=== PATIENT | female | born 1970 ===

== ENCOUNTER 2024-01-22 20:31 | Emergency (ER) | payer OTHER, SELFPAY ==
--- NOTE | ~2024-01-22 | CT_ITS ---
EXAMINATION: CT CERVICAL SPINE WITHOUT CONTRAST CLINICAL INFORMATION: Neck pain. COMPARISON: None available. TECHNIQUE: Multidetector helical imaging of the cervical spine was obtained without intravenous contrast. Multiple axial reformats and coronal/sagittal reconstructions were created the technologist workstation for review. This CT examination was performed using dose optimization techniques as appropriate, variously including the following: *Automated exposure control. *Adjustment of mA and/or kV according to patient size (this includes techniques or standardized protocols for targeted exams where dose is matched to indication/reason for exam; i.e. extremities or head). *Use of iterative reconstruction technique. DLP: 441 mGy-cm FINDINGS: The atlantooccipital and atlantoaxial articulations remain well aligned. Straightening of the normal cervical lordosis. Otherwise, there is anatomic alignment of the vertebral bodies and posterior elements. No evidence of acute fracture or subluxation. The vertebral body heights are maintained. Moderate degenerative disc disease from C4-C6. Facet and uncovertebral joint arthropathy leads to osseous encroachment on the neural foramina from C4-C6. There is no prevertebral soft tissue swelling. The thyroid gland and remaining cervical soft tissues are within normal limits. The lung apices demonstrate no abnormalities. SPINAL LEVELS: C2-C3: Minimal disc-osteophyte complex. There is mild right and no left uncovertebral joint arthropathy. There is mild bilateral facet joint arthropathy. There is no neural foraminal stenosis. There is no demonstrated spinal canal stenosis. C3-C4: Minimal disc-osteophyte complex. There is mild right and no left uncovertebral joint arthropathy. There is mild left worse than right facet joint arthropathy. There is no neural foraminal stenosis. There is no demonstrated spinal canal stenosis. C4-C5: Mild disc-osteophyte complex. There is moderate right worse than left uncovertebral joint arthropathy. There is moderate left and mild right facet joint arthropathy. There is moderate right and mild left neural foraminal stenosis. There is no demonstrated spinal canal stenosis. C5-C6: Moderate disc-osteophyte complex. There is moderate left and mild right uncovertebral joint arthropathy. There is mild bilateral facet joint arthropathy. There is mild left and no right neural foraminal stenosis. There is no demonstrated spinal canal stenosis. C6-C7: Normal annular contour. There is no uncovertebral joint arthropathy. There is mild bilateral facet joint arthropathy. There is no neural foraminal stenosis. There is no spinal canal stenosis. C7-T1: Normal annular contour. There is no uncovertebral joint arthropathy. There is no facet joint arthropathy. There is no neural foraminal stenosis. There is no spinal canal stenosis. CT/CT cervical spine wo IV con IMPRESSION: 1. No evidence of acute fracture or traumatic subluxation of the cervical spine. 2. Moderate multilevel degenerative spondyloarthropathy of the cervical spine as described in detail above. Most notably on this limited exam without intrathecal contrast, there appears to be moderate neural foraminal stenoses at C4-C5 and C5-C6. No demonstrated overt spinal canal stenosis. Electronically signed by: Osmin Vann DO 01/22/2024 10:48 PM SHANNON
[2024-01-22 20:46] VITALS: BP 118/59; PULSE 79; RESP 20; TEMP 36.6; O2SAT 97; BMI 28.2
--- NOTE | 2024-01-22 20:47 | ED.GENADULT ---
HPI - General Adult General Chief complaint: Neck Pain/Injury Stated complaint: body pain/primarily neck region Time Seen by Provider: 01/23/24 00:08 Source: patient Mode of arrival: ambulatory Limitations: no limitations History of Present Illness HPI narrative: Patient is a 53-year-old female who presents emergency department for evaluation. She has been experiencing lower neck pain that radiates to the bilateral trapezius region. Denies any precipitating injury or history of pain in the past. This started about 2-3 weeks ago. She decided to see a chiropractor she reports that she had about 3 sessions and was feeling better. But after the last 2 sessions she has not noticed an increase in pain, had most recent manipulation 1 week ago. She denies associated dizziness lightheadedness, headache, vision changes, sore throat, difficulty swallowing, facial drooping, weakness, difficulty speaking. Has not taken any OTC analgesics or applied any topical creams, topical heat, or cold therapy. Has not sought evaluation with primary care doctor for this. Denies any associated fevers, chills, night sweats, recent unintentional weight loss, numbness or tingling of the extremities, bladder bowel dysfunction. Related Data Previous Rx's ?Medication ?Instructions ?Recorded cyclobenzaprine 5 mg tablet 5 mg PO TID PRN muscle spasm #14 01/23/24 tabs prednisone 20 mg tablet 40 mg (2 x 20 mg) PO DAILY #10 tabs 01/23/24 Allergies Allergy/AdvReac Type Severity Reaction Status Date / Time No Known Allergies Allergy Verified 01/22/24 20:47 Review of Systems Review of Systems: Yes all other systems are reviewed and are negative [facility] Past Medical History Attestation statement: The following information was validated with the patient. Source: old records reviewed Social History Social History Advance Directives: No Advance Directives Information Provided: No Physical Exam ED Vital Signs: Vital Signs - 24 hr 01/22/24 20:46 Temperature 97.8 F Pulse Rate 79 Respiratory Rate 20 Blood Pressure 118/59 L Pulse Oximetry 97 Oxygen Delivery Method Room Air BMI result Body Mass Index 28.2 Appearance: Alert.?Oriented to person, place and time. No acute distress.?Normal affect. Eyes: Pupils equal, round and reactive to light.? ENT: Pharynx normal.?? Neck: Normal inspection.? Neck supple.? Full range of motion with slow movement, no nuchal rigidity.. No midline cervical spine tenderness, step-offs, deformities. Palpable tenderness to the bilateral trapezius region and lower cervical paraspinal muscles. ? CVS: Heart sounds normal. Normal heart rate and rhythm.? Pulses normal.?? Respiratory: No respiratory distress.? Lung sounds clear to auscultation bilaterally?? Abdomen: Soft and non-tender. Normoactive bowel sounds. Skin: Skin warm and dry.? Normal skin color.? Extremities: No lower extremity edema.? Neuro: Moves all extremities spontaneously. Sensation intact bilaterally. CN II-XII intact. No focal neuro deficits. Ambulates with normal steady gait. Course Course Course Narrative: This is an RME: Additional HPI, ROS, PE not included below will be deferred to primary provider. RME assessment and note performed by: Anabela Luciano PA-C This is a 64-[id number]-tjk-female, with a hx of migraines, who presents to the ER with complaints of neck pain x 2 weeks. Reporting generalized weakness as well. Patient reports that she went to a chiropractor last week and has had pain in since. Plan: Labs, ekg, ua Medical Decision Making Medical Decision Making [facility] Narrative: Patient is a 53-year-old female with past medical history of migraines presents emergency department for evaluation of neck pain with progressive worsening as per HPI. She does admit to some increasing pain after recent manipulation from the chiropractor, clinically appears less consistent with cervical artery dissection aside from. Full range of motion to pain has been tolerable without use of analgesics at home. CT of the cervical spine was obtained prior to my assumption of care without acute fracture subluxation, there is however multi level spondyloarthropathy with moderate neural foraminal stenoses C4-C5 and C5-C6 without overt spinal canal stenosis. On examination she has no neurological deficits. Has full range of motion to the bilateral upper extremities. Has notable tenderness of the bilateral trapezius muscles concern for paraspinal muscles. Plan of care for discharge home with anti-inflammatory muscle relaxant, outpatient follow-up with PCP and/or specialist, discussed strict return precautions. All questions answered. Stable for discharge Differential Diagnosis Differential Diagnoses: The differential diagnosis associated with the presentation includes (See narrative above) Admission/Observation Consideration of admission/observation: Escalation of care including admission/observation considered Lab Data [facility] Lab Attestation statement: I reviewed the patient's lab results. CBC is without leukocytosis, has a mild normocytic anemia that does not meet transfusion criteria, no thrombocytosis 2p tinea. No electrolyte derangement. No EDILIA. LFTs are unremarkable. High sensitive troponin within normal range. Urinalysis with small amount of blood in the urine, reports menstrual bleeding, no evidence of infection. Viral serologies are negative. 01/22/24 21:13 01/22/24 21:13 Labs: Lab Results 01/22/24 01/22/24 Range/Units 21:13 21:36 WBC 7.9 (4.8-10.8) X10*3/uL RBC 3.88 L (4.20-5.50) X10*6/uL Hgb 11.8 L (12.0-16.0) g/dl Hct 35.4 L (37.0-47.0) % MCV 91.2 (80.0-98.0) fL MCH 30.4 (27.0-33.0) pg MCHC 33.3 (31.0-35.0) g/dl RDW 13.1 (11.0-16.0) % Plt Count 305 (160-400) X10*3/uL MPV 10.2 (9.4-12.3) fL Immature Gran % (Auto) 0.4 (0.0-0.4) % Neut % (Auto) 50.8 (45-73) % Lymph % (Auto) 30.1 (20-40) % [place] % (Auto) 10.9 (2-11) % Eos % (Auto) 7.4 H (0-4) % Baso % (Auto) 0.4 (0-2) % Lymph # (Auto) 2.4 (1.2-4.9) X10*3/uL [place] # (Auto) 0.9 (0.1-1.2) X10*3/uL Eos # (Auto) 0.6 H (0.0-0.4) X10*3/uL Baso # (Auto) 0.0 (0.0-0.2) X10*3/uL Abs Immat Gran (auto) 0.03 (0.00-0.03) X10*3/uL Absolute Neuts (auto) 4.0 (2.0-8.3) x10*3/uL Absolute Nucleated RBC 0.000 (0.0-0.012) X10*3/uL Nucleated RBC % (auto) 0.0 (0.0-0.2) /100WBC Sodium 140 (135-145) mmol/L Potassium 3.9 (3.3-5.1) mmol/L Chloride 104 (96-108) mmol/L Carbon Dioxide 25 (22-29) mmol/L Anion Gap 15 (12-20) BUN 18 H (9-16) mg/dL Creatinine 1.00 (0.5-1.4) mg/dL Estim Creat Clear Calc 67.5 Estimated GFR 58 Random Glucose 106 (60-115) mg/dL Calcium 9.8 (8.4-10.2) mg/dL Magnesium 2.1 (1.6-2.6) mg/dL Total Bilirubin 0.2 (0.0-1.0) mg/dL Direct Bilirubin < 0.2 (0.0-0.5) mg/dL AST < 6 (5-31) U/L ALT 15 (0-31) U/L Alkaline Phosphatase 144 H (39-117) U/L Troponin I High Sens < 2.7 (<3.5-17.0) ng/L Total Protein 7.7 (6.5-8.0) g/dL Albumin 4.0 (3.5-5.0) g/dL Urine Color Yellow Urine Appearance Clear Urine pH 5.5 (5.0-9.0) Ur Specific [place] 1.020 (1.005-1.025) Urine Protein Negative (Neg-Trace) mg/dL Urine Glucose (UA) Negative (Negative) mg/dL Urine Ketones Negative (Negative) mg/dL Urine Blood Trace H (Negative) Urine Nitrite Negative (Negative) Ur Leukocyte Esterase Negative (Negative) Urine RBC 3-5 H (0-2) /HPF Urine WBC 0-5 (0-5) /HPF Ur Squamous Epith Cells 3-5 (0-2) /HPF Urine Bacteria None Seen (None Seen) Hyaline Casts 0-2 (0-2) /LPF Influenza Type A (PCR) NEGATIVE (Negative) Influenza Type B (PCR) NEGATIVE (Negative) RSV RNA Qual (PCR) NEGATIVE (Negative) SARS-CoV-2 RNA (RT-PCR) NEGATIVE (Negative) Independent Interpretation I performed an independent interpretation of an: EKG Interpretation: EKG revealing normal sinus rhythm with ventricular rate of 80, normal NEREIDA, QTC 455, no ST elevation aggression, no T-wave inversion. Radiology Impression Discussion of test interpretation with radiology: I have reviewed the radiologist's reading. Radiologist Impression: CT/CT cervical spine wo IV con IMPRESSION: 1. No evidence of acute fracture or traumatic subluxation of the cervical spine. 2. Moderate multilevel degenerative spondyloarthropathy of the cervical spine as described in detail above. Most notably on this limited exam without intrathecal contrast, there appears to be moderate neural foraminal stenoses at C4-C5 and C5-C6. No demonstrated overt spinal canal stenosis. Independent Historian Clinical information obtained from an independent historian. History obtained from or confirmed by: Spouse Tests considered The following testing was considered but not selected: Considered CT angio of the neck, clinical suspicion for cervical every dissection, deferred Prescription Management I considered prescription management with: Pain Medication (See narrative above) Discharge Plan Discharge Clinical Impression: Neuropathic spondyloarthropathy of cervical spine Patient Disposition: Home, Self-Care Instructions: Osteoarthritis (ED) Additional Instructions: Prescription for an oral steroid, prednisone has been sent to your pharmacy, take this daily with meals to prevent stomach upset, to aid in decreasing inflammation. Additionally a prescription for muscle relaxer cyclobenzaprine/Flexeril has been sent to your pharmacy to help with the muscular tension. This medication may make you drowsy. You should not drive, drink alcohol, or work while taking this medication. Please contact your primary care doctor to arrange for a follow-up visit, as discussed it may consider a course of physical therapy pain and/or additional radiographic imaging such as an MRI and/or referral to specialist. You may return to emergency department any new or worsening symptoms or concerns. Prescriptions: New prednisone 20 mg tablet 40 mg PO DAILY Qty: 10 0RF cyclobenzaprine 5 mg tablet 5 mg PO TID PRN (Reason: muscle spasm) Qty: 14 0RF Referrals: Physician,Unknown J [Primary Care Provider] - Print Language: Georgian
--- NOTE | 2024-01-22 20:49 | ECG_ITS ---
Test Reason : neck pain Blood Pressure : / mmHG Vent. Rate : 080 BPM Atrial Rate : 080 BPM P-R Int : 134 ms QRS Dur : 086 ms QT Int : 386 ms P-R-T Axes : 029 009 019 degrees QTc Int : 445 ms Normal sinus rhythm Normal ECG No previous ECGs available Referred By: Anabela Luciano Electronically Signed By:KYLER AVENDANO MD
[2024-01-22 21:20] LABS: MANUAL DIFF FLAG NO
[2024-01-22 21:25] LABS: Basophils Percent Auto 0.4 % (0-2); Eosinophils Absolute Auto 0.6 X10*3/uL (0.0-0.4); Eosinophils Percent Auto 7.4 % (0-4); Hematocrit 35.4 % (37.0-47.0); Hemoglobin 11.8 g/dl (12.0-16.0); Imm Gran Abs Auto 0.03 X10*3/uL (0.00-0.03); Imm Gran Pct Auto 0.4 % (0.0-0.4); Lymphocytes Absolute Auto 2.4 X10*3/uL (1.2-4.9); Lymphocytes Percent Auto 30.1 % (20-40); Mean Corpuscular HGB Conc 33.3 g/dl (31.0-35.0); Mean Corpuscular Hemoglobin 30.4 pg (27.0-33.0); Mean Corpuscular Volume 91.2 fL (80.0-98.0); Mean Platelet Volume 10.2 fL (9.4-12.3); Monocytes Absolute Auto 0.9 X10*3/uL (0.1-1.2); Monocytes Percent Auto 10.9 % (2-11); Neutrophils Percent Auto 50.8 % (45-73); Platelet Count 305 X10*3/uL (160-400); Red Blood Count 3.88 X10*6/uL (4.20-5.50); Red Cell Distribution Width 13.1 % (11.0-16.0); White Blood Count 7.9 X10*3/uL (4.8-10.8)
[2024-01-22 21:36] LABS: Alanine Aminotransferase 15 U/L (0-31); Alkaline Phosphatase 144 U/L (39-117); Anion Gap 15 (12-20); Aspartate Amino Transferase < 6 U/L (5-31); Bilirubin Direct < 0.2 mg/dL (0.0-0.5); Bilirubin Total 0.2 mg/dL (0.0-1.0); Blood Urea Nitrogen 18 mg/dL (9-16); Calcium 9.8 mg/dL (8.4-10.2); Carbon Dioxide 25 mmol/L (22-29); Chloride 104 mmol/L (96-108); Creatinine Clr Calc Pharmacy 67.5; Estimated Glomerular Filt Rate 58; Glucose Random 106 mg/dL (60-115); Magnesium 2.1 mg/dL (1.6-2.6); Potassium 3.9 mmol/L (3.3-5.1); Sodium 140 mmol/L (135-145); Total Protein 7.7 g/dL (6.5-8.0)
[2024-01-22 21:43] LABS: Troponin-I High Sensitivity < 2.7 ng/L (<3.5-17.0)
[2024-01-22 21:45] LABS: Appearance Urine Clear; Color Urine Yellow; Glucose Urine UA Negative (Negative); Leukocyte Esterase Urine Negative (Negative); Nitrite Urine Negative (Negative); PH 5.5 (5.0-9.0); UMIC TRIGGER UACC YES; Urine Blood Trace (Negative); Urine Ketones Negative (Negative); Urine Protein Negative (Neg-Trace)
[2024-01-22 21:50] LABS: Bacteria Urine None Seen (None Seen); Hyaline Casts Urine 0-2 /LPF (0-2); WBC Urine 0-5 /HPF (0-5)
[2024-01-22 22:03] LABS: Influenza A PCR NEGATIVE (Negative); Influenza B PCR NEGATIVE (Negative); Resp Syncy Virus RNA Qual PCR NEGATIVE (Negative); SARS COV2 PCR INHOUSE NEGATIVE (Negative)
[2024-01-23 00:40] VITALS: BP 128/70; PULSE 68; RESP 16; TEMP 36.7; O2SAT 100
[2024-01-23 01:17] VITALS: BP 128/70; PULSE 68; RESP 16; TEMP 36.7; O2SAT 100
== END 2024-01-23 01:17 | disposition home or self-care (01) ==
PROVIDERS: Physician Assistant Medical; Emergency Provider Emergency Medicine
DX: M54.2 Cervicalgia (principal); M49.82 Spondylopathy in diseases classified elsewhere, cervical region; Z03.818 Encounter for observation for suspected exposure to other biological agents ruled out
CPT/HCPCS: 0241U; 36415; 72125; 80048; 80076; 81001; 83735; 84484; 85025; 93005; 99284

== ENCOUNTER → 2024-01-22 20:49 | Outpatient (BNV) | payer OTHER, SELFPAY | PROVIDERS: Emergency Provider Emergency Medicine; Visit Provider Internal Medicine Cardiovascular Disease | DX: M54.2 Cervicalgia (principal) | CPT/HCPCS: 93010 ==

== ENCOUNTER 2024-07-24 12:47 | Outpatient (AMB) | payer OTHER, SELFPAY ==
--- NOTE | 2024-07-24 12:57 | A.SPINEOV_ITS ---
Vital Signs 07/24/24 13:00 Height 5 ft 6 in Weight 175 lb BMI 28.2 Intake Visit Reasons: neck pain Intake Note: Ms. Alvarez is here today c/o Neck pain. Riprap Worker Required: No Allergies No Known Allergies Allergy (Verified 07/24/24 13:00) Physical Exam Vital Signs: BMI result Body Mass Index 28.2 Assessment & Plan Assessment & Plan (1) Cervical disc disorder: Code(s): M50.90 - Cervical disc disorder, unspecified, unspecified cervical region Category: Medical Plan Dear Esperanza, Thank you for referring Mrs Alvarez to our office today. She is a 53-year-old female presents today for evaluation of what she describes as burning pain along her shoulders. She has limited range of motion with reaching overhead, and pain there all the time. It started sometime around December last year. She saw a chiropractor and that seemed to make it worse. She takes Tylenol, Advil and cyclobenzaprine. She had an MRI done showing some disc degeneration and was referred here today in the office. She has no radicular symptoms or myelopathic complaints. So far she has done no dedicated conservative treatment other than the 1 chiropractic visit. PMH: Otherwise healthy Social hx: Does not smoke, drink use any recreational drugs Medications: Tylenol, Advil, cyclobenzaprine Allergies: None Physical exam: Awake alert oriented no acute distress, gait normal, strength and reflexes normal. No signs of myelopathy Imaging review: Cervical MRI done at [facility] shows some mild disc degeneration at C4-5 and C5-6. No evidence of nerve compression or spinal cord compression seen. Impression: 53-year-old female presents for evaluation of pain across her upper back into her shoulders, who has some mild degeneration of her discs at C4-5 and C5-6. I do not see any evidence of compression of the nerves. Her disc quality is otherwise relatively good outside of these mild changes. I do not see anything that would lend itself to surgery. She is going to follow up with what sounds like the arthritis Center in [place]. She could possibly see someone it a pain management center toofor evaluation. Either is a good place to start but I explained to her that I do not think the symptoms are coming from her neck. Maybe it some kind of polymyalgia, or it could be rotator cuff issue as she does have to lift her son who had a spinal cord injury and provide all of his personal care for him. Thank you for allowing us to care for your patient. The total time spent with this visit with this patient was 45 minutes reviewing history, physical exam, cervical imaging review, and implementation of treatment plan or further diagnostic testing Bethel Mariee MD,PhD [facility] Coding Level of Care Code New Pt Level 4 (37857) Diagnoses Cervical disc disorder M50.90
[2024-07-24 13:00] VITALS: BMI 28.2
--- OUTSIDE RECORDS SUMMARY | 2024-07-24 14:44 | XMS_ITS | Continuity of Care Document ---
Author Organization [facility] Address [address] [place] [address] Dr [address] [place] [id number] Phone Care Team Providers Care Posting Specialist Name Role Phone Lino HOPPER, FRANCINE, Dmitri [...] Providers Copied on Encounter [facility], [address] [place] [address] Dr Alfred [address]Suite Quique Cantor [place], [id number], [place] tel:[phone] CVR - [facility] No Information Lino HOPPER, SERGIO ESCAMILLA. [address] [facility], [facility] [address], [place], [place], [id number], [place]. tel:[phone] Offic/outpt E&m Estab 5 Min Trial- Telemedicine [place] & [place] [facility], [address] [place] [address] Dr Alfred 1000SuQuique hernandez [place], [id number], tel:[phone] CVR - [facility] Localized edemaCramp and spasmRestless legs syndromeVenou s insufficiency (chronic) (peripheral) 5 Lorrie Cheng. [facility] [place] [address], [place], [id number], [place]. tel:[phone] Referring Provider: Edwina Ibarra MD, [address] [facility] [place], [address]. tel:[phone] Offic Cons New/estab Mod-hi 60- [place] & [place] [facility], [address] [place] [address] [facility] [address], [place], [id number], [place] tel:[phone] [facility] hypertension (idiopathic) with other complications of bilateral lower extremityRest less legs syndromeVenou s insufficiency (chronic) (peripheral) 5 Lino HOPPER, FRANCINE, SERGIO Rizvi. [address] [place] [address], [place], [id number], [place]. tel:[phone] [facility], [address] [place] [address] [facility] [address], [place], [id number], [place] tel:[phone] [facility] Chronic venous hypertension (idiopathic) with other complications of bilateral lower extremity 5 Lino HOPPER RVT, RPVI Robert. [address] [place] [address], [place], [id number], [place]. tel:[phone] Referring Provider: Dmitri Huynh MD, RVT, SERGIO, [address] [place] [address], [place], [address] . tel:[phone] Family History Family Member Type Diagnosis Age At Onset No Information Payers Payer name Insurance type Covered green party ID Authoriza tion(s) No Information Social History [...] Body mass index (BMI) 29.0-29.9, adult) ordered Appointment Daisha Alvarez BOOKED Appointment Daisha Alvarez BOOKED History Of Present Illness Encounter Date Complaint History Of Prese nt Illness No Information Functional Status Date Functional Assessmen t No Information Instructions Date Instruction Additional Infor sarah Patient education booklet given Related to Localized edema Pre and post instruc tions reviewed and provided Related to Localized edema Diet education Related [...]
== END 2024-07-24 13:21 | disposition home or self-care (01) ==
LOC: HO.HNS 12:48
PROVIDERS: Visit Provider Physician Assistant
DX: M50.90 Cervical disc disorder, unspecified, unspecified cervical region (principal)
CPT/HCPCS: 99204

== ENCOUNTER → 2024-07-24 12:47 | Outpatient (BNVA) | payer OTHER, SELFPAY | PROVIDERS: Visit Provider Physician Assistant | DX: M54.2 Cervicalgia (principal); M25.511 Pain in right shoulder; M25.512 Pain in left shoulder | CPT/HCPCS: 99202 ==

== ENCOUNTER 2025-01-22 17:00 | Emergency (ER) | payer OTHER, SELFPAY ==
--- OUTSIDE RECORDS SUMMARY | 2024-07-01 03:55 | XMS_ITS | Continuity of Care Document ---
Author Organization [facility] Address [address] [place] [address] [address] [place] [address] Phone Care Team Providers Care Car Rental Sales Assistant Name Role Phone Lino HOPPER, FRANCINE, Dmitri HILL Unavailable U navailable Allergies, Adverse Reactions, Alerts Substance Reaction Status Criticality No Known Allergies Active No Inform ation Procedures Procedure Date Offic/outpt E&m Estab 5 Min Trial- Telem edicine CT & [place] Offic Cons New/estab Mod-hi 60- CT & [place] Duplex Scan-extrem Veins; Comp- CT & [place] Advance Directives Directive Yes / No Effective Date File Name No Information Encounters Encounter Description Practice Location Reason(s) For Visit Diagnoses Date Provider Providers Copied on Encounter [facility], [address] [place] [address] [address] Quique Cantor [place], [id number], [place] tel:[phone] [facility] - [facility] No Information Lino HOPPER, SERGIO ESCAMILLA. [address] [facility], [facility] [address], [place], [place], [id number], [place]. tel:[phone] Offic/outpt E&m Estab 5 Min Trial- Telemedicine CT & [place] [facility], [address] [place] [address] [address]ique hernandez [place], [id number], tel:[phone] [facility] - [facility] Localized edemaCramp and spasmRestless legs syndromeVenou s insufficiency (chronic) (peripheral) 5 Lorrie Cheng. [facility] [place] [address], [place], [id number], [place]. tel:[phone] Referring Provider: Edwina Ibarra MD, [address] [facility] [place], [address]. tel:[phone] Offic Cons New/estab Mod-hi 60- CT & [place] [facility], [address] [place] [address] [facility] [address], [place], [id number], tel:[phone] [facility] venous hypertension (idiopathic) with other complications of bilateral lower extremityRest less legs syndromeVenou s insufficiency (chronic) (peripheral) 5 Lino HOPPER, FRANCINE, SERGIO Rizvi. [address] [place] [address], [place], [id number], [place]. tel:[phone] [facility], [address] [place] [address] [facility] [address], [place], [id number], [place] tel:[phone] [facility] Chronic venous hypertension (idiopathic) with other complications of bilateral lower extremity 5 Lino HOPPER RVT, RPVI Robert. [address] [place] [address], [place], [id number], [place]. tel:[phone] Referring Provider: Dmitri Huynh MD, RVT, SERGIO, [address] [place] [address], [place], [address] . tel:[phone] Family History Family Member Type Diagnosis Age At Onset No Information Payers Payer name Insurance type Covered libertarian ID Authoriza tion(s) No Information Social History Type Description Quantity Date Captured Comments Sex Female Smoking Status No Information Chief Complaint And Reason For Visit No Information Reason For Referral Reason For Referral No Information Plan Of Treatment Date Type Action Status Goal Diet education completed Referral Ordered: Weight management: Referral to physician timeframe: 3 Months (related to Body mass index (BMI) 29.0-29.9, adult) ordered History Of Present Illness Encounter Date Complaint History Of Prese nt Illness No Information Functional Status Date Functional Assessmen t No Information Instructions Date Instruction Additional Infor mation Pre and post instruc tions reviewed and provided Related to Localized edema Patient education booklet given Related to Localized edema Diet education Related to Body mass index (BMI) 29.0-29.9, adult Giving Encouragement to exercise Related to Body mass index (BMI) 29.0-29.9, adult Lifestyle education Related to B rosana mass index (BMI) 29.0-29.9, adult Patient education booklet given Related to Chronic venous hypertension (idiopathic) with other complications of bilateral lower extremity Pre and post instruc tions reviewed and provided Related to Chronic venous hypertension (idiopathic) with other complications of bilateral lower extremity Assessments Type Assessment Date No Information Patient Care Teams Name Effective Dates (start - stop) Status Members No Information
--- NOTE | ~2025-01-22 | XR_ITS ---
CLINICAL HISTORY: pain Radiographs of the right shoulder, 3 views Comparison: None available Findings: No fracture or dislocation. Normal acromiohumeral interval. Mild degenerative change of the acromioclavicular joint. No soft tissue swelling. Impression: No acute findings. Mild acromioclavicular joint degenerative change. Radiographs of the left shoulder, 3 views Comparison: None available Findings: No fracture or dislocation. Normal acromiohumeral interval. Mild degenerative change of the acromioclavicular joint. No soft tissue swelling. Impression: No acute findings. Mild acromioclavicular joint degenerative change. This document has been electronically signed by: Teresa Arita MD on 01/22/2025 18:26:49
--- NOTE | ~2025-01-22 | US_ITS ---
CLINICAL HISTORY: calf pain Venous duplex ultrasound left lower extremity Comparison: None provided Findings: The visualized deep veins of the left lower extremity are fully compressible with normal Doppler color flow and spectral tracings. No popliteal cyst. The right common femoral vein is patent. IMPRESSION: Negative for left lower extremity deep vein thrombosis. This document has been electronically signed by: Fabiola Miller MD on 01/22/2025 19:38:12
--- NOTE | ~2025-01-22 | XR_ITS ---
CLINICAL HISTORY: pain Radiographs of the left knee, 4 views Comparison: None available Findings: There is no fracture or dislocation. No joint space narrowing or osteophytosis. No knee joint effusion. No soft tissue swelling. Impression: Normal study. This document has been electronically signed by: Teresa Arita MD on 01/22/2025 18:25:26
[2025-01-22 17:03] VITALS: BP 119/53; PULSE 76; RESP 18; TEMP 36.7; O2SAT 99; BMI 29.7
--- NOTE | 2025-01-22 17:03 | ED_ITS ---
HPI - General Adult General Chief complaint: General Medical Stated complaint: bilateral arm pain and lt leg pain Time Seen by Provider: 01/22/25 18:45 Related Data Previous Rx's ?Medication ?Instructions ?Recorded cyclobenzaprine 5 mg tablet 5 mg PO TID PRN muscle spa sm #14 01/23/24 tabs prednisone 20 mg tablet 40 mg (2 x 20 mg) PO DAILY # 10 tabs 01/23/24 cyclobenzaprine 5 mg tablet 5 mg PO TID PRN muscle spa sm #14 01/22/25 tabs prednisone 20 mg tablet 40 mg (2 x 20 mg) PO DAILY 5 days 01/22/25 #10 tabs Allergies Allergy/AdvReac Type Severity Reaction Status Date / Time No Known Allergies Allergy Verified 01/22/25 17:05 Physical Exam ED Vital Signs: Vital Signs - 24 hr 01/22/25 17:03 Temperature 98.0 F Pulse Rate 76 Respiratory Rate 18 Blood Pressure 119/53 L Pulse Oximetry 99 Oxygen Delivery Method Room Air BMI result Body Mass Index 29.7 Course Course Course Narrative: This is an RME: Additional HPI, ROS, PE not included below will be deferred to primary provider. RME assessment and note performed by: Anabela Lawton PA-C This is a 41-[id number]-hmg-female, with no known medical problems, who presents to the ER with concerns of bilateral shoulder pain and left knee pain for a long time. Decreased ROM to BL arms. Has not seen orthopedics. Plan: xrays Discharge Plan Discharge Clinical Impression: Chronic pain of both shoulders, Knee pain, left Patient Disposition: Home, Self-Care Instructions: Shoulder Pain (ED) Additional Instructions: You were seen in the emergency department due to chronic bilateral shoulder pain as well as left knee and leg pain. You have arthritis in both of your shoulders which can cause you to have this pain. Take prescribed prednisone as directed, start this tomorrow. We medicated you with Toradol, this is a pain medication, do not take any ibuprofen/aspirin/naproxen tonight. Gentle stretching, heat or ice, can be beneficial for your symptoms. You can take Tylenol as well for your pain. Cyclobenzaprine as a muscle relaxants, you can take this as needed for muscle spasm. If any new or worsening symptoms occur including but not limited to severe chest pain, shortness of breath, abdominal pain, please seek emergent care. Call your primary care physician tomorrow. Follow-up with the counterintelligence specialist. Prescriptions: New prednisone 20 mg tablet 40 mg PO DAILY 5 Days Qty: 10 0RF cyclobenzaprine 5 mg tablet 5 mg PO TID PRN (Reason: muscle spasm) Qty: 14 0RF No Action prednisone 20 mg tablet 40 mg PO DAILY Qty: 10 0RF cyclobenzaprine 5 mg tablet 5 mg PO TID PRN (Reason: muscle spasm) Qty: 14 0RF Referrals: [facility] [Provider Group] Stand Alone Forms: Work/School Release Print Language: Burkinan
[2025-01-22 20:12] VITALS: BP 119/53; PULSE 76; RESP 18; TEMP 36.7; O2SAT 99
--- OUTSIDE RECORDS SUMMARY | 2025-01-22 23:34 | XMS_ITS | Clinical Summary ---
Author Organization [facility] Address [address] [place] [address] [place] [phone] Phone Care Team Providers Care Director Pharmaceutical Name Role Phone Bethel Melendrez MD Primary Care Provider [phone] Allergies No known active allergies Medications SUMAtriptan (IMITREX) 50 MG tabletIndication s:Migraine without aura and without status migrainosus, not intractable Take 1 tablet as needed for severe headache. Repeat in 2 hours if headache persists. Do not take more than 200 mg in 24 hours. 12 tablet 5 9 Active Immunizations Immunization Administration Dates Next Due INFLUENZA, SPLIT VIRUS, TRIV ALENT W/ PRESERVATIVE IM 12/14/2011 Influenza, Unspecified Formulation 02/22,12/09/2013,01/20/2013,2010,05/11/2010 Tdap 05/05/2020,05/11/2010 Social History Tobacco Use Types Packs/Day Years Used Date Smoking Tobacco: Never Assessed Education Answer Date Recorded Are you interested in more education? Not on manisha e 06/09/2022 Are you concerned about learning? Not on file 06/09/2022 No 06/09/2022 No 06/09/2022 Digital Access Answer Date Recorded No 07/08/2022 No 07/08/2022 No 07/08/2022 Reliable internet access at home? Not on file 07/08/2022 Device with a working camera? Not on file Comments Unknown Sex and Gender Information Value Date Recorded Sex Assigned at Not on file Legal Sex Female 1:31 PM EST Gender Identity Not on file Sexual Orientation Not on file Last Filed Vital Signs Vital Sign Reading Time Taken Comments Blood Pressure 105/59 01/24/2019 2:51 PM EST Pulse 65 01/24/2019 2:51 PM EST Temperature - - Respiratory Rate - - Oxygen Saturation - - Inhaled Oxygen Concentration - - Weight 70.8 kg (156 lb) 01/24/2019 2:51 PM EST Height 167.6 cm (5' 6 ) 01/24/2019 2:51 PM EST Body Mass Index 25.18 01/24/2019 2:51 PM EST Plan of Treatment Health Maintenance Due Date Last Done Comments LIPID PANEL 1968 DEPRESSION SCREENING 1980 SMOKING Hx and SMOKELESS TOBACCO SCREENING 1981 HEPATITIS C SCREENING 1986 HIV ONE-TIME SCREENING (18-65 YEARS) 1986 PAP SMEAR 1989 MAMMOGRAM 2008 COLOGUARD 2013 COLONOSCOPY 2013 COLORECTAL CANCER SCREENING 2013 FIT TEST 2013 FOBT 2013 SIGMOIDOSCOPY 2013 VIRTUAL COLONOSCOPY 2013 PNEUMOCOCCAL VACCINES (50+ years) (1 of 1 - PCV) 2018 ZOSTER VACCINES (1 of 2) 2018 INFLUENZA VACCINE (#1) 2024 9, 12/09/2013, 01/20/2013, Additional history exists COVID-19 VACCINE ( - season) 2024 Adult Td,Tdap Booster 05/05/2030 05/05/2020, 011 RSV VACCINE (1 - 1-dose 75+ series) 12/14/2043 HEPATITIS A VACCINES Aged Out No long er eligible based on patient's age to complete this topic HIB VACCINES Aged Out No longer eligi ble based on patient's age to complete this topic MENINGOCOCCAL VACCINES (ACWY) Aged Out No longer eligible based on patient's age to complete this topic MENINGOCOCCAL VACCINES (B) Aged Out N o longer eligible based on patient's age to complete this topic Medical Devices Not on file Insurance WELLSENSE NON NSPG PCP SILVER CLARITY CONNECTORCARE WELLSENSE NON NSPG PCP SILVER CLARITY CONNECTORCARE WELLS[employer] NON NSPG PCP SILVER CLARITY CONNECTORCARE WELLSENSE NON NSPG PCP SILVER CLARITY CONNECTORCARE WELLSENSE NON NSPG PCP SILVER CLARITY CONNECTORCARE WELLSENSE NON NSPG PCP SILVER CLARITY CONNECTORCARE Care Teams Director Pharmaceutical Relationship Specialty Start Date End Date Bethel Melendrez MD [address] [place] [address] PCP - General Internal Medicine 01/17/19 Additional Source Comments The information contained in this document represents components of the legal health record. It is not the complete legal health record.[facility]
== END 2025-01-22 20:13 | disposition home or self-care (01) ==
PROVIDERS: Emergency Provider Student in an Organized Health Care Education/Training Program; PCP Nurse Practitioner Family
DX: M25.511 Pain in right shoulder (principal); M25.512 Pain in left shoulder; M25.562 Pain in left knee; R60.0 Localized edema
CPT/HCPCS: 73030; 73564; 93971; 96372; 99283; 99284; J1885

== ENCOUNTER → 2025-01-22 17:06 | Outpatient (BNV) | payer OTHER, SELFPAY | PROVIDERS: PCP Nurse Practitioner Family; Visit Provider Radiology Diagnostic Radiology | DX: M79.662 Pain in left lower leg (principal); M25.562 Pain in left knee; M19.011 Primary osteoarthritis, right shoulder; M19.012 Primary osteoarthritis, left shoulder | CPT/HCPCS: 73030; 73564; 93971 ==